=== PATIENT | female | born 1945 | race Caucasian/White ===

== ENCOUNTER 2022-05-23 09:37 | Day surgery (SDC) | payer MEDICARE, OTHER, SELFPAY ==
[2022-05-23] VITALS (32 sets, daily range): BP systolic 99–189; BP diastolic 56–107; PULSE 60–80; RESP 12–20; TEMP 35.8–36.8; O2SAT 92–99; BMI 33.8
[2022-05-23] MEDS: LACTATED RINGERS 1000 ML 1,000 ML 100 ML IV (11:00)
[2022-05-23] MEDS: SODIUM CHLORIDE 0.9 % (FLUSH) 10 ML SYRINGE IVF (11:00)
[2022-05-23] MEDS: CELECOXIB 200 MG CAPSULE PO (11:20)
[2022-05-23] MEDS: OXYCODONE (CR) 10 MG TAB.ER.12H PO (11:20)
[2022-05-23] MEDS: ACETAMINOPHEN 500 MG TABLET 1000 MG PO (11:20)
[2022-05-23] MEDS: fentaNYL 100 MCG/2 ML inj IVP (11:35)
[2022-05-23] MEDS: MIDAZOLAM HCL 1 MG/ML inj IVP (11:35)
--- NOTE | 2022-05-23 11:44 | SUR.PREOP ---
TIME?OUT:? PT/RN/MDA?VERIFICATION?OF?SURGICAL?SITE,?PROCEDURE,?AND?CONSENT OBTAINED?PRIOR?TO?INVASIVE?PROCEDURE.CORRECT SITE IDENTIFIED SITE MARKED. SPRACLAVICULAR BLOCK COMPLETED BY PABLO WHITEHEAD CRNA AND HORACIO PERSAUD CRNA
--- NOTE | 2022-05-23 11:52 | W.PM.NB ---
Nerve Block Nerve Block Time Seen by Provider: 11:42 Date Seen: 05/23/22 Type of block requested by surgeon for post-operative analgesia: supraclavicular Side: right Time out performed: Yes Verification of patient name: Yes Verification of date of : Yes Site marking: site marked Name of person performing procedure: Trey Rivera Continuous monitoring Was continuous monitoring of O2 sat, B/P, laboratory monitor, recorded every 15 minutes?: Yes Procedure Checklist: sterile prep, needles and gloves Ultrasound guided. Images saved: Yes Medications given in 5ml increments after negative aspiration: Ropivicaine %: 0.5 mL: 20 Needle gauge: 20 Decadron (mg): 10 Precedex (mcg): 25 Patient tolerated procedure well: Yes Block Charges Block Charge (with Pro Fee): Brachial Plexus Use of Ultrasound Machine for Block: Yes- US Guidance/pain block
--- NOTE | 2022-05-23 12:56 | CRLHL7_ITS ---
For Patients: As a result of the Cures Act, medical imaging exams and procedure reports are released immediately into your electronic medical record. You may view this report before your referring provider. If you have questions, please contact your health care provider. Indication: POST OP RIGHT SHOULDER Technique: Two views right shoulder Findings/Impression: Hardware from a right total shoulder arthroplasty is in satisfactory position. Bone alignment is normal. No sign of acute fracture. Postop changes are within normal limits. Dictated by Kendrick Brush MD @ 05/24/2022 8:58:18 AM (Electronically Signed)
[2022-05-23] MEDS: CEFAZOLIN 2 GM in 0.9 % SODIUM CHLORIDE Mini-bag 100 ML IVPB ×2 (13:00→17:19)
[2022-05-23] MEDS: TRANEXAMIC ACID 100 MG/ML INJ 1000 MG IV (13:00)
--- NOTE | 2022-05-23 15:09 | PM.ORPRC ---
Procedure Note Date of procedure: 05/23/22 Procedure: PREOPERATIVE DIAGNOSIS: 1. Right shoulder cuff tear arthropathy with full-thickness supra, infra, and subscap tears with moderate atrophy of all 3. 2. Right long head of the biceps tendinopathy and tenosynovitis POSTOPERATIVE DIAGNOSIS: 1. Right shoulder cuff tear arthropathy with full-thickness supra, infra, and subscap tears with moderate atrophy of all 3. 2. Right long head of the biceps tendinopathy and tenosynovitis PROCEDURE: 1. Right reverse shoulder arthroplasty. 2. Right long head of biceps open tenodesis SURGEON: Osmani Rodriguez MD. NAIL MAKING MACHINE SETTER: Chevy Patricio PA-C; Favio TAYLOR - Of note, a skilled video production assistant was critical for this case to aid in patient positioning, tissue retraction, limb manipulation/positioning, retraction for glenoid exposure, which was challenging, awareness and protection of critical structures, and closure. ANESTHESIA: General plus supraclavicular block IMPLANTS: DJ0 surgical Altivate humeral stem size 10 small shell, short with P2 porous coating vitamin E neutral poly small socket insert RSP glenoid base plate P2 porous coating with 4 perimeter locking screws 32 neutral glenosphere with retaining screw COMPLICATIONS: None evident INDICATIONS: The patient is a pleasant 76-year-old female who has experienced severe right shoulder pain and difficulty with use. Workup included imaging which revealed severe osteoarthrosis along with concern for rotator cuff quality. Physical exam was consistent with associated pain. Given the deformity, the dysfunction, and the pain, and failure of nonoperative management, recommendation was made for surgery. DESCRIPTION OF PROCEDURE: Following a thorough discussion of risks, benefits, and alternatives, consent was obtained and the right shoulder was marked. The patient was brought to the operating room and placed supine on the operating table. Induction of anesthesia was undertaken. 2 g IV Ancef and 1 g tranexamic acid was administered within 1 hr of incision preoperatively. Appropriate time-out was performed identifying proper patient, site, and procedure. The operative extremity was prepped and draped in the appropriate sterile fashion using ChloraPrep after the patient was positioned in the lazy beach chair position with head in neutral alignment and all bony prominences well padded. A longitudinal incision was made for deltopectoral approach. Deltoid was retracted laterally. Cephalic vein was retracted laterally as well. The clavipectoral fascia was identified and divided longitudinally staying lateral to the conjoined tendon / coracoid. The conjoined tendon was protected with a blunt Hohmann. The long head of the biceps tendon was identified and the bicipital sheath released. The upper 1/4 of the pectoralis major was also released from its insertion. The long head of the biceps was tenodesed to the pectoralis major tendon. The remaining proximal tendon tissue was excised. The rotator cuff was inspected and found to have good integrity with the subscapularis but fair integrity with a supraspinatus], and a decision for a reverse shoulder arthroplasty was confirmed. The long head of biceps, of note, was significant flattened, thickened, with abundant tenosynovitis. A subscapularis cuff of tissue was left via tenotomy for later repair with the remaining subscapularis released in a subperiosteal fashion with the Bovie. This was tagged for later repair. The 3 sisters were cauterized. The upper subscapularis was released from the capsule with a curved Martinez scissors towards the glenoid. The inferior subscapularis was divided from the capsular tissue on its caudal surface with particular caution for the axillary nerve. This was palpated anterior to the subscapularis both prior to and near the finish of the case. Inferior humeral head osteophytes were excised with caution taken throughout the case with regards to the axillary nerve. The humerus was dislocated, and humeral head cut completed. The Sizer was placed and the central drill hole created. Then a protector plate was applied. We turned our attention to the glenoid. The humerus was retracted posteriorly. The subscap was protected anteriorly and the labrum/long head biceps origin was excised circumferentially. The capsule was released along the anterior and inferior portions of the glenoid cautiously with a Curtis elevator being careful not to penetrate deep. The glenoid had appropriate exposure, and was prepared with the cannulated system with a target of approximately 5-10? of inferior tilt and neutral anteversion. After placing the guide pin, the tap was placed followed by the glenoid reaming with the 2 different sized Reamer. Following this, preparation was complete with this central drill, the real base plate was opened, and inserted, and excellent purchase was achieved with the central screw. Peripheral screws were then drilled, measured, and placed accordingly again achieving excellent purchase. The glenosphere was then placed consistent with the preoperative plan utilizing the above noted glenosphere. After securing the glenosphere with the locking torque limited screw, attention was turned back to the humerus. A canal finer was placed followed by various reamers. The real humeral stem was then opened and inserted with excellent metaphyseal fit and stability. Trial poly was placed and the shoulder reduced. Excellent reduction and stability achieved. At this stage, the trial implants were removed, and the real implants inserted. A 3 minute Betadine soak was performed followed by a thorough irrigation with normal saline. Subscapularis was repaired with # 1 PDS to the cuff of tissue on the lesser tuberosity. Excellent reapproximation of tissue achieved. A single far lateral rotator cuff interval suture was placed with # 0 Vicryl. Hemostasis was found to be appropriate. The deltopectoral interval was reapproximated with 0 Vicryl, subcutaneous and subcuticular closure was then performed with number 2-0 Vicryl and 4-0 Monocryl, respectively. A skilled video production assistant was critical for this case to aid in patient positioning, tissue retraction, limb manipulation/positioning, retraction for glenoid exposure, which was challenging, awareness and protection of critical structures, and closure. PLAN: 1. Sling at all times for the operative upper extremity. 2. AROM of elbow, forearm, wrist, and digits as tolerated. 3. PT/OT consults for education and assistance. 4. Social consult for discharge planning. 5. 23 hr perioperative antibiotics. 6. Early ambulation, and SCDs for DVT prophylaxis. 7. Admit to the hospital for the above 8. Analgesics p.r.n.
--- NOTE | 2022-05-23 15:54 | W.ANESCHARGE ---
Anesthesia Charges Start Date/Time Anesthesia Start Date: 05/23/22 Anesthesia Start Time: 12:49 Stop Date/Time Anesthesia Stop Date: 05/23/22 Anesthesia Stop Time: 15:40 Summary Emergency: No Extremes of Age: Over 70-CPT 74354
[2022-05-23] MEDS: fentaNYL 100 MCG/2 ML inj 50 MCG IVP (15:57)
--- NOTE | 2022-05-23 17:06 | SUR.PHASEI ---
patient met anesthesia criteria for discharge
[2022-05-23] MEDS: HYDROmorphone 0.5 mg/0.5 ml inj IVP (17:20)
--- NOTE | 2022-05-23 19:34 | PM.IMCN1 ---
Date of Consult Patient: Shona Patient Consult date: 05/23/22 Requesting Physician: Orthopedics Primary Care Provider: Alcides Garcia MD Consult Narrative Reason for consult: Postoperative management Narrative: HOSPITALIST CONSULT Hospital Day # 1 Post Op Day # 0 PROCEDURE: 1.? Right reverse shoulder arthroplasty. 2.? Right long head of biceps open tenodesis ANESTHESIA:? General plus supraclavicular block IMPLANTS:? DJ0 surgical COMPLICATIONS:? None evident The hospital medicine team was asked by Orthopedic surgery team to manage the patient's GERD, dyslipidemia. Patient is interviewed and examined the evening of her surgery. She is comfortably in her bedside chair. No apparent complications or concerns. I updated the [facility] histories and Medications and Allergies in the Expanse tabs REVIEW OF SYSTEMS: 12-point ROS completed with patient and negative unless otherwise stated in HPI or below. PHYSICAL EXAM: CODE STATUS: FULL CODE CONSTITUTIONAL: Conversive, good historian. A/O. Knows setting and context. VITAL SIGNS: see record. HEENT: Normocephalic, atraumatic. PERRL, EOMI, conjunctivae pink, no scleral icterus. Ears and nose externally normal. Pharynx normal. NECK: No JVD. No carotid bruit, no thyromegaly, no adenopathy. CHEST: Clear to auscultation bilaterally HEART: No harsh murmurs. S1/S2. ABDOMEN: Flat, soft, nontender. Normal bowel sounds. Moderately obese. EXTREMITIES: No edema. MUSCULOSKELETAL: Right shoulder surgical dressing in place. No obvious hematoma, neurovascular deficit or bleeding noted. NEURO: Cranial nerves intact. Normal affect. No gross deficits. Speech intelligible. SKIN: No rashes, petechiae, concerning changes PSYCHIATRIC: Euthymic. INVESTIGATIONS: EMR Reviewed DISPOSITION: MedSurg Recovery; Discharge tomorrow DVT: Not applicable GI: PO intake [facility] Medical History GERD (gastroesophageal reflux disease) Hyperlipidemia Surgical History (Updated 05/23/22 @ 23:02 by Niya Moses MD) History of appendectomy History of back surgery History of cataract extraction with lens replacement History of cholecystectomy History of vein stripping Status post reverse total shoulder replacement Family History Mother Myocardial infarction Father Lung cancer Social History Highest level of school completed/degree received: Bachelor's degree Smoking Status: Never smoker Do you use any of these nicotine containing products: None How often do you have a drink containing alcohol: 2-3 times a week How many standard drinks containing alcohol do you have on a typical day: 1 or 2 How often do you have six or more drinks on one occasion: Never AUDIT-C Alcohol total score: 3 Non-prescribed substance use: denies use Caffeine: Yes Are you now , , , , never or living with a partner: Social isolation score (0-1 are the most socially isolated patients): 1 service: No Meds Home Medications and Allergies Home Medications Medication Instructions Recorded Confirmed Type atorvastatin 20 mg tablet 20 mg PO HS 05/23/22 05/23/22 History Allergies Allergy/AdvReac Type Severity Reaction Status Date / Time nickel Allergy Intermediate Infection Verified 05/23/22 12:03 with earrings Exam Const: Vital Signs, click to edit/add: Vital Signs - 24 hr 05/23/22 10:44 05/23/22 11:35 05/23/22 11:40 Temperature 98 F Pulse Rate 62 62 60 Respiratory Rate 20 20 12 Blood Pressure 105/68 99/62 100/56 L Pulse Oximetry 99 98 97 Oxygen Delivery Me thod Room Air Nasal Cannula Nasal Cannula Oxygen Flow Rate 3 3 05/23/22 11:45 05/23/22 11:50 05/23/22 12:00 Temperature Pulse Rate 60 60 60 Respiratory Rate 14 14 14 Blood Pressure 106/59 L 100/59 L 102/57 L Pulse Oximetry 98 97 98 Oxygen Delivery Me thod Nasal Cannula Nasal Cannula Nasal Cannula Oxygen Flow Rate 3 3 3 05/23/22 15:38 05/23/22 15:45 05/23/22 15:40 Temperature 96.6 F L 96.6 F L 96.6 F L Pulse Rate 69 64 71 Respiratory Rate 15 12 15 Blood Pressure 130/67 147/84 H 141/68 H Pulse Oximetry 96 97 96 Oxygen Delivery Me thod Nasal Cannula Nasal Cannula Nasal Cannula Oxygen Flow Rate 6 6 6 05/23/22 15:50 05/23/22 15:55 05/23/22 16:00 Temperature 96.6 F L 96.6 F L 96.6 F L Pulse Rate 61 65 61 Respiratory Rate 18 16 16 Blood Pressure 157/81 H 169/97 H 170/78 H Pulse Oximetry 98 97 96 Oxygen Delivery Me thod Nasal Cannula Nasal Cannula Nasal Cannula Oxygen Flow Rate 6 6 3 05/23/22 16:05 05/23/22 16:10 05/23/22 16:15 Temperature 96.6 F L 96.6 F L 96.6 F L Pulse Rate 63 66 63 Respiratory Rate 14 16 15 Blood Pressure 164/92 H 172/98 H 186/74 H Pulse Oximetry 97 97 97 Oxygen Delivery Me thod Nasal Cannula Nasal Cannula Nasal Cannula Oxygen Flow Rate 3 3 2 05/23/22 16:20 05/23/22 16:25 05/23/22 16:30 Temperature 96.6 F L 96.6 F L 96.6 F L Pulse Rate 65 64 71 Respiratory Rate 12 15 14 Blood Pressure 189/93 H 170/93 H 171/105 H Pulse Oximetry 96 92 92 Oxygen Delivery Me thod Room Air Room Air Room Air Oxygen Flow Rate 0 0 0 05/23/22 16:35 05/23/22 16:40 05/23/22 16:45 Temperature 96.4 F L 96.8 F L 96.8 F L Pulse Rate 70 67 66 Respiratory Rate 12 15 17 Blood Pressure 178/102 H 184/88 H 187/107 H Pulse Oximetry 95 97 96 Oxygen Delivery Me thod Nasal Cannula Nasal Cannula Nasal Cannula Oxygen Flow Rate 2 2 2 05/23/22 16:50 Temperature 96.8 F L Pulse Rate 65 Respiratory Rate 16 Blood Pressure 184/90 H Pulse Oximetry 95 Oxygen Delivery Me thod Nasal Cannula Oxygen Flow Rate 2 Assessment and Plan Assessment and plan (1) Status post reverse total shoulder replacement: Problem comment: Dr. Paul Ashraf; 05/23/22 Status: Acute Assessment and Plan: Hospital medicine team is happy to follow this patient through to discharge. No VTE prophylaxis is needed. No perioperative concerns or questions. I expect a benign, routine postoperative course. I expect she will discharge in the morning. (2) GERD (gastroesophageal reflux disease): Problem comment: PPI prn, not scheduled Status: Acute Assessment and Plan: Pepcid or PPI as needed. (3) Hyperlipidemia: Problem comment: Lipitor 20mg hs Status: Acute Assessment and Plan: Continue her Lipitor, dosed in the morning (4) Obesity: Status: Acute
[2022-05-23] MEDS: SENNOSIDES 1 TAB TABLET 2 TAB PO (20:31)
[2022-05-23] MEDS: OXYCODONE 5 MG TABLET PO ×2 (20:31→23:48)
[2022-05-24] MEDS: CEFAZOLIN 2 GM in 0.9 % SODIUM CHLORIDE Mini-bag 100 ML IVPB ×2 (01:08→08:40)
[2022-05-24] MEDS: ACETAMINOPHEN 500 MG TABLET 1000 MG PO ×2 (01:14→08:38)
[2022-05-24] MEDS: OXYCODONE 5 MG TABLET PO ×3 (01:15→10:55)
[2022-05-24] MEDS: ONDANSETRON 2 MG/ML inj 4 MG IVP (01:19)
[2022-05-24] MEDS: MAG HYDROX/ALUMINUM HYD/SIMETH 30 ML ORAL.SUSP PO (01:23)
[2022-05-24 03:00] VITALS: BP 160/78; PULSE 81; RESP 16; TEMP 36.9; O2SAT 92
--- NOTE | 2022-05-24 07:09 | PC.NURSE ---
Shift Note 23-: Pt pleasant and cooperative, VSS with the exception of elevated BP, MD aware. Satisfactory urinary output, PIV SL. Pt up with A1 to assist with cryo-cuff. Pain controlled with scheduled Tylenol and Oxycodone PRN. see eMAR for medication administration.
[2022-05-24 07:28] LABS: Hematocrit 39.3 % (33.0-51.0); Hemoglobin* 12.7 gm/dL (12.0-16.0); Mean Corpuscular HGB Conc 32 gm/dL (32-36); Mean Corpuscular Hemoglobin 30 pg (26-34); Mean Corpuscular Volume 94 fL (80-100); Platelet Count* 183 K/uL (140-440); Red Blood Count 4.18 m/uL (4.00-5.20); White Blood Count* 9.97 K/uL (4.50-11.00)
[2022-05-24 07:31] LABS: Slide Review Reflex No
[2022-05-24 07:45] VITALS: BP 130/71; PULSE 74; TEMP 36.9; O2SAT 97
[2022-05-24 07:48] LABS: Potassium* 4.6 mmol/L (3.6-5.1); Sodium* 136 mmol/L (135-149)
[2022-05-24 08:01] LABS: Blood Urea Nitrogen* 13 mg/dL (7-30); Creatinine* 0.9 mg/dL (0.5-1.5); Est. Creatinine Clearance* 37.85; Estimated Glomerular Filt Rate 66 ml/min
--- NOTE | 2022-05-24 09:49 | PM.ORPN ---
Subjective Subjective Date Seen: 05/24/22 Principal diagnosis: Status postop day 1 right reverse total shoulder arthroplasty Interval history: Patient reports doing well. No acute events over night. Pain managed with scheduled /PRN medications and ice. Wearing bilateral knee high Fly stockings, and SCDs. Denies fevers, chills, aches, N/V, CP, SOB/KHAN, tachycardia, or lightheadedness. Ortho Exam Narrative Exam Narrative: Right shoulder: -Patient appears comfortable in recliner eating breakfast; no apparent acute distress -Alert and oriented times 3 -Operative shoulder swollen; soft, supple tissues; no obvious erythema. Ecchymosis minimal. Warmth appropriate -Surgical dressing clean, dry, intact; no obvious drainage, no erythematous streaking peripheral to the bandage -Bilateral calves soft and supple; no significant swelling, edema, tenderness, erythema, discoloration, warmth, or palpable cords -2+ radial pulse, intact dermatomes and myotomes distally (5/5 strength). Specifically axillary nerve intact Const Vital Signs, click to edit/add: Vital Signs - 24 hr 05/23/22 10:44 05/23/22 11:35 05/23/22 11:40 Temperature 98 F Pulse Rate 62 62 60 Pulse Rate [Left Apical] Respiratory Rate 20 20 12 Blood Pressure 105/68 99/62 100/56 L Blood Pressure [Left Arm] Pulse Oximetry 99 98 97 Oxygen Delivery Method Room Air Nasal Cannula Nasal Cannula Oxygen Flow Rate 3 3 05/23/22 11:45 05/23/22 11:50 05/23/22 12:00 Temperature Pulse Rate 60 60 60 Pulse Rate [Left Apical] Respiratory Rate 14 14 14 Blood Pressure 106/59 L 100/59 L 102/57 L Blood Pressure [Left Arm] Pulse Oximetry 98 97 98 Oxygen Delivery Method Nasal Cannula Nasal Cannula Nasal Cannula Oxygen Flow Rate 3 3 3 05/23/22 15:38 05/23/22 15:45 05/23/22 15:40 Temperature 96.6 F L 96.6 F L 96.6 F L Pulse Rate 69 64 71 Pulse Rate [Left Apical] Respiratory Rate 15 12 15 Blood Pressure 130/67 147/84 H 141/68 H Blood Pressure [Left Arm] Pulse Oximetry 96 97 96 Oxygen Delivery Method Nasal Cannula Nasal Cannula Nasal Cannula Oxygen Flow Rate 6 6 6 05/23/22 15:50 05/23/22 15:55 05/23/22 16:00 Temperature 96.6 F L 96.6 F L 96.6 F L Pulse Rate 61 65 61 Pulse Rate [Left Apical] Respiratory Rate 18 16 16 Blood Pressure 157/81 H 169/97 H 170/78 H Blood Pressure [Left Arm] Pulse Oximetry 98 97 96 Oxygen Delivery Method Nasal Cannula Nasal Cannula Nasal Cannula Oxygen Flow Rate 6 6 3 05/23/22 16:05 05/23/22 16:10 05/23/22 16:15 Temperature 96.6 F L 96.6 F L 96.6 F L Pulse Rate 63 66 63 Pulse Rate [Left Apical] Respiratory Rate 14 16 15 Blood Pressure 164/92 H 172/98 H 186/74 H Blood Pressure [Left Arm] Pulse Oximetry 97 97 97 Oxygen Delivery Method Nasal Cannula Nasal Cannula Nasal Cannula Oxygen Flow Rate 3 3 2 05/23/22 16:20 05/23/22 16:25 05/23/22 16:30 Temperature 96.6 F L 96.6 F L 96.6 F L Pulse Rate 65 64 71 Pulse Rate [Left Apical] Respiratory Rate 12 15 14 Blood Pressure 189/93 H 170/93 H 171/105 H Blood Pressure [Left Arm] Pulse Oximetry 96 92 92 Oxygen Delivery Method Room Air Room Air Room Air Oxygen Flow Rate 0 0 0 05/23/22 16:35 05/23/22 16:40 05/23/22 16:45 Temperature 96.4 F L 96.8 F L 96.8 F L Pulse Rate 70 67 66 Pulse Rate [Left Apical] Respiratory Rate 12 15 17 Blood Pressure 178/102 H 184/88 H 187/107 H Blood Pressure [Left Arm] Pulse Oximetry 95 97 96 Oxygen Delivery Method Nasal Cannula Nasal Cannula Nasal Cannula Oxygen Flow Rate 2 2 2 05/23/22 16:50 05/23/22 17:07 05/23/22 17:15 Temperature 96.8 F L 97.7 F 98 F Pulse Rate 65 67 Pulse Rate [Left Apical] 71 Respiratory Rate 16 16 16 Blood Pressure 184/90 H Blood Pressure [Left Arm] 175/86 H 170/86 H Pulse Oximetry 95 94 Oxygen Delivery Method Nasal Cannula Nasal Cannula Nasal Cannula Oxygen Flow Rate 2 1 1 05/23/22 17:30 05/23/22 17:45 05/23/22 18:00 Temperature 97.8 F 97.7 F Pulse Rate Pulse Rate [Left Apical] 70 77 Respiratory Rate 16 16 16 Blood Pressure Blood Pressure [Left Arm] 163/82 H 161/88 H 151/78 H Pulse Oximetry 96 95 95 Oxygen Delivery Method Nasal Cannula Nasal Cannula Room Air Oxygen Flow Rate 1 1 05/23/22 18:30 05/23/22 19:00 05/23/22 20:00 Temperature 98.2 F Pulse Rate Pulse Rate [Left Apical] 80 74 Respiratory Rate 16 16 16 Blood Pressure Blood Pressure [Left Arm] 146/77 H 124/103 H 130/94 H Pulse Oximetry 93 94 92 Oxygen Delivery Method Room Air Room Air Room Air Oxygen Flow Rate 05/23/22 21:00 05/23/22 22:00 05/24/22 03:00 Temperature 98.5 F Pulse Rate Pulse Rate [Left Apical] 78 79 81 Respiratory Rate 16 16 16 Blood Pressure Blood Pressure [Left Arm] 128/96 H 132/89 160/78 H Pulse Oximetry 93 92 92 Oxygen Delivery Method Room Air Room Air Room Air Oxygen Flow Rate 05/24/22 07:45 Temperature 98.4 F Pulse Rate Pulse Rate [Left Apical] 74 Respiratory Rate Blood Pressure Blood Pressure [Left Arm] 130/71 Pulse Oximetry 97 Oxygen Delivery Method Room Air Oxygen Flow Rate Assessment and Plan Assessment and plan (1) Status post reverse total shoulder replacement: Problem details: Dr. Osmani Rodriguez; 05/23/22 POD 1 right reverse total shoulder arthroplasty and long head biceps tenodesis Status: Acute (2) GERD (gastroesophageal reflux disease): Problem details: PPI prn, not scheduled Status: Acute (3) Hyperlipidemia: Problem details: Lipitor 20mg hs Status: Acute (4) Obesity: Status: Acute Plan - Complete 23 hour perioperative antibiotics. - PT/OT consult for education and assistance. - Social work consult for discharge planning - Prescribed analgesics as needed - Continue bilateral knee high Fly Hose stockings and SCDs - Anticipation is for discharge to home with family today 05/24/2022 if the patient remains medically stable, pain is controlled, and they are safe with mobilization.
--- NOTE | 2022-05-24 09:53 | P.DS_ITS ---
DS: Providers Provider Date Seen: 05/24/22 Date of admission: med/surg recovery 05/23/22 Primary care physician: Alcides Garcia MD Consults: 05/23/22 17:07 Consult to Occupational Therapy [CONS] Routine Comment: Reason(s) for OT Consult:: Evaluate and Treat Any Restrictions?:: See Comment Comment: ROM elbow, forearm, wrist, digits PRN Shoulder pendulums okay No active shoulder ROM Consult to Physical Therapy [CONS] Routine Comment: Reason(s) for PT Consult:: Evaluate and Treat Any Restrictions?:: No Restrictions Consult to Physician [CONS] Routine Comment: Consulting Provider: Hospitalists Has provider been notified: No Consult to Geriatric Nurse Practitioner [CONS] Routine Comment: Reason for Consult:: Discharge Planning Needs Attending Physician on discharge: Osmani Rodriguez MD Date of Discharge: 05/24/22 DS: Diagnosis Discharge Diagnosis (1) Status post reverse total shoulder replacement: Status: Acute Problem details: POD 1 right reverse total shoulder arthroplasty and long head biceps tenodesis DS: Summary Hospital Course Hospital Course: The patient has a history of right shoulder cuff tear arthropathy with full- thickness supra, infra, and subscap tears with moderate atrophy of all 3 tendons, and right long head of the biceps tendinopathy and tenosynovitis After appropriate preoperative evaluation, the patient underwent right reverse total shoulder arthroplasty and long head biceps tenodesis. Postoperatively, the patient was progressed to PT/OT and was felt ready for discharge. Status at Discharge Functional status at discharge: independent ambulation Overall status at discharge: patient is not back to baseline Time Spent with Patient Time attestation: Total time spent providing and/or coordinating discharge services: Time spent: Less than 30 minutes Exam Const: Vital Signs, click to edit/add: Vital Signs - 24 hr 05/23/22 10:44 05/23/22 11:35 05/23/22 11:40 Temperature 98 F Pulse Rate 62 62 60 Pulse Rate [Left A pical] Respiratory Rate 20 20 12 Blood Pressure 105/68 99/62 100/56 L Blood Pressure [Le ft Arm] Pulse Oximetry 99 98 97 Oxygen Delivery Me thod Room Air Nasal Cannula Nasal Cannula Oxygen Flow Rate 3 3 05/23/22 11:45 05/23/22 11:50 05/23/22 12:00 Temperature Pulse Rate 60 60 60 Pulse Rate [Left A pical] Respiratory Rate 14 14 14 Blood Pressure 106/59 L 100/59 L 102/57 L Blood Pressure [Le ft Arm] Pulse Oximetry 98 97 98 Oxygen Delivery Me thod Nasal Cannula Nasal Cannula Nasal Cannula Oxygen Flow Rate 3 3 3 05/23/22 15:38 05/23/22 15:45 05/23/22 15:40 Temperature 96.6 F L 96.6 F L 96.6 F L Pulse Rate 69 64 71 Pulse Rate [Left A pical] Respiratory Rate 15 12 15 Blood Pressure 130/67 147/84 H 141/68 H Blood Pressure [Le ft Arm] Pulse Oximetry 96 97 96 Oxygen Delivery Me thod Nasal Cannula Nasal Cannula Nasal Cannula Oxygen Flow Rate 6 6 6 05/23/22 15:50 05/23/22 15:55 05/23/22 16:00 Temperature 96.6 F L 96.6 F L 96.6 F L Pulse Rate 61 65 61 Pulse Rate [Left A pical] Respiratory Rate 18 16 16 Blood Pressure 157/81 H 169/97 H 170/78 H Blood Pressure [Le ft Arm] Pulse Oximetry 98 97 96 Oxygen Delivery Me thod Nasal Cannula Nasal Cannula Nasal Cannula Oxygen Flow Rate 6 6 3 05/23/22 16:05 05/23/22 16:10 05/23/22 16:15 Temperature 96.6 F L 96.6 F L 96.6 F L Pulse Rate 63 66 63 Pulse Rate [Left A pical] Respiratory Rate 14 16 15 Blood Pressure 164/92 H 172/98 H 186/74 H Blood Pressure [Le ft Arm] Pulse Oximetry 97 97 97 Oxygen Delivery Me thod Nasal Cannula Nasal Cannula Nasal Cannula Oxygen Flow Rate 3 3 2 05/23/22 16:20 05/23/22 16:25 05/23/22 16:30 Temperature 96.6 F L 96.6 F L 96.6 F L Pulse Rate 65 64 71 Pulse Rate [Left A pical] Respiratory Rate 12 15 14 Blood Pressure 189/93 H 170/93 H 171/105 H Blood Pressure [Le ft Arm] Pulse Oximetry 96 92 92 Oxygen Delivery Me thod Room Air Room Air Room Air Oxygen Flow Rate 0 0 0 05/23/22 16:35 05/23/22 16:40 05/23/22 16:45 Temperature 96.4 F L 96.8 F L 96.8 F L Pulse Rate 70 67 66 Pulse Rate [Left A pical] Respiratory Rate 12 15 17 Blood Pressure 178/102 H 184/88 H 187/107 H Blood Pressure [Le ft Arm] Pulse Oximetry 95 97 96 Oxygen Delivery Me thod Nasal Cannula Nasal Cannula Nasal Cannula Oxygen Flow Rate 2 2 2 05/23/22 16:50 05/23/22 17:07 05/23/22 17:15 Temperature 96.8 F L 97.7 F 98 F Pulse Rate 65 67 Pulse Rate [Left A pical] 71 Respiratory Rate 16 16 16 Blood Pressure 184/90 H Blood Pressure [Le ft Arm] 175/86 H 170/86 H Pulse Oximetry 95 94 Oxygen Delivery Me thod Nasal Cannula Nasal Cannula Nasal Cannula Oxygen Flow Rate 2 1 1 05/23/22 17:30 05/23/22 17:45 05/23/22 18:00 Temperature 97.8 F 97.7 F Pulse Rate Pulse Rate [Left A pical] 70 77 Respiratory Rate 16 16 16 Blood Pressure Blood Pressure [Le ft Arm] 163/82 H 161/88 H 151/78 H Pulse Oximetry 96 95 95 Oxygen Delivery Me thod Nasal Cannula Nasal Cannula Room Air Oxygen Flow Rate 1 1 05/23/22 18:30 05/23/22 19:00 05/23/22 20:00 Temperature 98.2 F Pulse Rate Pulse Rate [Left A pical] 80 74 Respiratory Rate 16 16 16 Blood Pressure Blood Pressure [Le ft Arm] 146/77 H 124/103 H 130/94 H Pulse Oximetry 93 94 92 Oxygen Delivery Me thod Room Air Room Air Room Air Oxygen Flow Rate 05/23/22 21:00 05/23/22 22:00 05/24/22 03:00 Temperature 98.5 F Pulse Rate Pulse Rate [Left A pical] 78 79 81 Respiratory Rate 16 16 16 Blood Pressure Blood Pressure [Le ft Arm] 128/96 H 132/89 160/78 H Pulse Oximetry 93 92 92 Oxygen Delivery Me thod Room Air Room Air Room Air Oxygen Flow Rate 05/24/22 07:45 Temperature 98.4 F Pulse Rate Pulse Rate [Left A pical] 74 Respiratory Rate Blood Pressure Blood Pressure [Le ft Arm] 130/71 Pulse Oximetry 97 Oxygen Delivery Me thod Room Air Oxygen Flow Rate DS: Data Data Completed and Pending Labs on day of discharge: Labs from last 24 hours 05/24/22 05/24/22 06:24 06:24 WBC 9.97 RBC 4.18 Hgb 12.7 Hct 39.3 MCV 94 MCH 30 MCHC 32 Plt Count 183 Sodium 136 Potassium 4.6 BUN 13 Creatinine 0.9 Estimated Creat Clear 37.85 Estimated GFR 66 Discharge Plan Discharge Disposition: Home, Self-Care Discharging Surgeon: Osmani Rodriguez Follow-Up Appointment: 1 week postop with PA Prescriptions: New sennosides-docusate sodium [Senna-S] 8.6-50 mg tablet 1 - 4 tab-cap PO BID PRN (Reason: constipation) Qty: 60 0RF Rx Instructions: Hold medication if experiencing loose stools. acetaminophen 500 mg capsule 500 - 1,000 mg PO Q6H MDD 4000mg PRNQty: 100 0RF oxycodone 5 mg tablet 2.5 - 5 mg PO Q4-6H MDD 6 PRN (Reason: pain) Qty: 42 0RF Rx Instructions: Take as needed for postop pain: 2.5mg mild pain, 5mg moderate-severe pain; wean as tolerated. Continued atorvastatin 20 mg tablet 20 mg PO HS Activity Level: No Restrictions, Activity as Tolerated and No Weight Bearing Activity Detail: No weight bearing right upper extremity Sling at all times unless performing elbow range of motion Wound: ?Do not remove original dressing; we will remove this at first postop visit in 1 week. Only remove dressing if integrity is in question. ?No immersing wound in water; showering okay; light scrub with your hand and body soap, rinse, dab dry ?Sutures are under the skin, will dissolve; allow surgical glue to come off naturally; do not scrub the wound or apply ointments/lotions ?Call our office with any redness that streaks, excessive drainage from the wound, or wound gapping. Ice/Elevate: ?Ice as needed for swelling and discomfort (cryocuff or ice pack); elevate frequently above the heart DANIELLA socks: ?Wear for 1 month, remove for 1 hour 3 times per day ?These are frustrating to take on/off, but are important for blood clot prevention for 1 month after surgery. Driving: ?Do not drive while taking narcotic pain medication Dental: ?No elective dental work for 6 months post-op. If there is an urgent/emergent dental need, contact our office for an antibiotic prescription. Smoking/Alcohol: ?Do not smoke; do no drink alcohol especially when taking postoperative oral narcotic medication Seek Care from you Primary Care Provider if you experience the following issues in the postoperative phase and beyond: ?Bacterial infections such as: pneumonia, bacterial skin infection (cellulitis), UTI, high fever, chills unrelated to the operative body part - call your primary care physician urgently for treatment in hopes to protect your health and the metal implant. Referrals: ?PT, OT per patient preference - evaluate and treat right reverse total shoulder arthroplasty protocol (ROM, ADLs, knee-high Daniella socks) Follow up: ?Ortho surgeon follow-up in 6 weeks; repeat radiographs three views right shoulder ?PA-C visit in 1 week *If there are any acute concerns regarding your surgery, please call our orthopedic clinic ([phone]) Discharge Diet: Regular Patient Instructions: Surgical Site Infections (DC) Forms: Work/Release Restrictions Follow-up: Chevy Patricio PA-C [Physician Care Transport Nurse] - 05/31/22 9:30 am Alcides Garcia MD [Primary Care Provider] - (Set up appointment as needed.) Discharge Orders: Discharge Order (Routine); Ordered 05/24/22 Ordered By: Sosa Rios
--- NOTE | 2022-05-24 10:25 | P.DS_ITS ---
DS: Providers Provider Date Seen: 05/24/22 Primary care physician: Alcides Garcia MD Admitting Clinician: Osmani Rodriguez MD Consults: Patient seen by therapies and hospitalist team during stay. Attending Physician on discharge: Osmani Rodriguez MD Date of Discharge: 05/24/22 DS: Diagnosis Discharge Diagnosis (1) Status post reverse total shoulder replacement: Status: Acute Problem details: POD 1 right reverse total shoulder arthroplasty and long head biceps tenodesis (2) Hyperlipidemia: Status: Acute Problem details: Lipitor 20mg hs (3) GERD (gastroesophageal reflux disease): Status: Acute Problem details: PPI prn, not scheduled DS: Summary Hospital Course Hospital Course: Veronica was admitted to the hospital for a RIGHT reverse total shoulder replacement. Hospitalist team was consulted to follow given comorbidities as noted above. Patient did well postoperatively. No changes were made to home medications upon discharge. Prophylaxis and pain management per Orthopedic surgery team. Patient will be discharged home with routine follow-up with therapies, orthopedic surgery, and PCP. Status at Discharge Functional status at discharge: independent ambulation Overall status at discharge: patient is progressing back to baseline Time Spent with Patient Time attestation: Total time spent providing and/or coordinating discharge services: Time spent: Less than 30 minutes Exam Narrative: Exam Narrative: Gen: A/O CV: RRR, no M/R/G R: Breathing comfortably, LCTA bilaterally Ext: Wearing brace on R shoulder, normal peripheral pulses Neuro: Nonfocal, ambulating with therapies well Const: Vital Signs, click to edit/add: Vital Signs - 24 hr 05/23/22 10:44 05/23/22 11:35 05/23/22 11:40 Temperature 98 F Pulse Rate 62 62 60 Pulse Rate [Left A pical] Respiratory Rate 20 20 12 Blood Pressure 105/68 99/62 100/56 L Blood Pressure [Le ft Arm] Pulse Oximetry 99 98 97 Oxygen Delivery Me thod Room Air Nasal Cannula Nasal Cannula Oxygen Flow Rate 3 3 05/23/22 11:45 05/23/22 11:50 05/23/22 12:00 Temperature Pulse Rate 60 60 60 Pulse Rate [Left A pical] Respiratory Rate 14 14 14 Blood Pressure 106/59 L 100/59 L 102/57 L Blood Pressure [Le ft Arm] Pulse Oximetry 98 97 98 Oxygen Delivery Me thod Nasal Cannula Nasal Cannula Nasal Cannula Oxygen Flow Rate 3 3 3 05/23/22 15:38 05/23/22 15:45 05/23/22 15:40 Temperature 96.6 F L 96.6 F L 96.6 F L Pulse Rate 69 64 71 Pulse Rate [Left A pical] Respiratory Rate 15 12 15 Blood Pressure 130/67 147/84 H 141/68 H Blood Pressure [Le ft Arm] Pulse Oximetry 96 97 96 Oxygen Delivery Me thod Nasal Cannula Nasal Cannula Nasal Cannula Oxygen Flow Rate 6 6 6 05/23/22 15:50 05/23/22 15:55 05/23/22 16:00 Temperature 96.6 F L 96.6 F L 96.6 F L Pulse Rate 61 65 61 Pulse Rate [Left A pical] Respiratory Rate 18 16 16 Blood Pressure 157/81 H 169/97 H 170/78 H Blood Pressure [Le ft Arm] Pulse Oximetry 98 97 96 Oxygen Delivery Me thod Nasal Cannula Nasal Cannula Nasal Cannula Oxygen Flow Rate 6 6 3 05/23/22 16:05 05/23/22 16:10 05/23/22 16:15 Temperature 96.6 F L 96.6 F L 96.6 F L Pulse Rate 63 66 63 Pulse Rate [Left A pical] Respiratory Rate 14 16 15 Blood Pressure 164/92 H 172/98 H 186/74 H Blood Pressure [Le ft Arm] Pulse Oximetry 97 97 97 Oxygen Delivery Me thod Nasal Cannula Nasal Cannula Nasal Cannula Oxygen Flow Rate 3 3 2 05/23/22 16:20 05/23/22 16:25 05/23/22 16:30 Temperature 96.6 F L 96.6 F L 96.6 F L Pulse Rate 65 64 71 Pulse Rate [Left A pical] Respiratory Rate 12 15 14 Blood Pressure 189/93 H 170/93 H 171/105 H Blood Pressure [Le ft Arm] Pulse Oximetry 96 92 92 Oxygen Delivery Me thod Room Air Room Air Room Air Oxygen Flow Rate 0 0 0 05/23/22 16:35 05/23/22 16:40 05/23/22 16:45 Temperature 96.4 F L 96.8 F L 96.8 F L Pulse Rate 70 67 66 Pulse Rate [Left A pical] Respiratory Rate 12 15 17 Blood Pressure 178/102 H 184/88 H 187/107 H Blood Pressure [Le ft Arm] Pulse Oximetry 95 97 96 Oxygen Delivery Me thod Nasal Cannula Nasal Cannula Nasal Cannula Oxygen Flow Rate 2 2 2 05/23/22 16:50 05/23/22 17:07 05/23/22 17:15 Temperature 96.8 F L 97.7 F 98 F Pulse Rate 65 67 Pulse Rate [Left A pical] 71 Respiratory Rate 16 16 16 Blood Pressure 184/90 H Blood Pressure [Le ft Arm] 175/86 H 170/86 H Pulse Oximetry 95 94 Oxygen Delivery Me thod Nasal Cannula Nasal Cannula Nasal Cannula Oxygen Flow Rate 2 1 1 05/23/22 17:30 05/23/22 17:45 05/23/22 18:00 Temperature 97.8 F 97.7 F Pulse Rate Pulse Rate [Left A pical] 70 77 Respiratory Rate 16 16 16 Blood Pressure Blood Pressure [Le ft Arm] 163/82 H 161/88 H 151/78 H Pulse Oximetry 96 95 95 Oxygen Delivery Me thod Nasal Cannula Nasal Cannula Room Air Oxygen Flow Rate 1 1 05/23/22 18:30 05/23/22 19:00 05/23/22 20:00 Temperature 98.2 F Pulse Rate Pulse Rate [Left A pical] 80 74 Respiratory Rate 16 16 16 Blood Pressure Blood Pressure [Le ft Arm] 146/77 H 124/103 H 130/94 H Pulse Oximetry 93 94 92 Oxygen Delivery Me thod Room Air Room Air Room Air Oxygen Flow Rate 05/23/22 21:00 05/23/22 22:00 05/24/22 03:00 Temperature 98.5 F Pulse Rate Pulse Rate [Left A pical] 78 79 81 Respiratory Rate 16 16 16 Blood Pressure Blood Pressure [Le ft Arm] 128/96 H 132/89 160/78 H Pulse Oximetry 93 92 92 Oxygen Delivery Me thod Room Air Room Air Room Air Oxygen Flow Rate 05/24/22 07:45 Temperature 98.4 F Pulse Rate Pulse Rate [Left A pical] 74 Respiratory Rate Blood Pressure Blood Pressure [Le ft Arm] 130/71 Pulse Oximetry 97 Oxygen Delivery Me thod Room Air Oxygen Flow Rate DS: Data Data Completed and Pending Labs on day of discharge: Labs from last 24 hours 05/24/22 05/24/22 06:24 06:24 WBC 9.97 RBC 4.18 Hgb 12.7 Hct 39.3 MCV 94 MCH 30 MCHC 32 Plt Count 183 Sodium 136 Potassium 4.6 BUN 13 Creatinine 0.9 Estimated Creat Clear 37.85 Estimated GFR 66 Discharge Plan Discharge Disposition: Home, Self-Care Discharging Surgeon: Osmani Rodriguez Follow-Up Appointment: 1 week postop with PA Prescriptions: New sennosides-docusate sodium [Senna-S] 8.6-50 mg tablet 1 - 4 tab-cap PO BID PRN (Reason: constipation) Qty: 60 0RF Rx Instructions: Hold medication if experiencing loose stools. acetaminophen 500 mg capsule 500 - 1,000 mg PO Q6H MDD 4000mg PRNQty: 100 0RF oxycodone 5 mg tablet 2.5 - 5 mg PO Q4-6H MDD 6 PRN (Reason: pain) Qty: 42 0RF Rx Instructions: Take as needed for postop pain: 2.5mg mild pain, 5mg moderate-severe pain; wean as tolerated. Continued atorvastatin 20 mg tablet 20 mg PO HS Activity Level: No Restrictions, Activity as Tolerated and No Weight Bearing Activity Detail: No weight bearing right upper extremity Sling at all times unless performing elbow range of motion Wound: ?Do not remove original dressing; we will remove this at first postop visit in 1 week. Only remove dressing if integrity is in question. ?No immersing wound in water; showering okay; light scrub with your hand and body soap, rinse, dab dry ?Sutures are under the skin, will dissolve; allow surgical glue to come off naturally; do not scrub the wound or apply ointments/lotions ?Call our office with any redness that streaks, excessive drainage from the wound, or wound gapping. Ice/Elevate: ?Ice as needed for swelling and discomfort (cryocuff or ice pack); elevate frequently above the heart DANIELLA socks: ?Wear for 1 month, remove for 1 hour 3 times per day ?These are frustrating to take on/off, but are important for blood clot prevention for 1 month after surgery. Driving: ?Do not drive while taking narcotic pain medication Dental: ?No elective dental work for 6 months post-op. If there is an urgent/emergent dental need, contact our office for an antibiotic prescription. Smoking/Alcohol: ?Do not smoke; do no drink alcohol especially when taking postoperative oral narcotic medication Seek Care from you Primary Care Provider if you experience the following issues in the postoperative phase and beyond: ?Bacterial infections such as: pneumonia, bacterial skin infection (cellulitis), UTI, high fever, chills unrelated to the operative body part - call your primary care physician urgently for treatment in hopes to protect your health and the metal implant. Referrals: ?PT, OT per patient preference - evaluate and treat right reverse total shoulder arthroplasty protocol (ROM, ADLs, knee-high Daniella socks) Follow up: ?Ortho surgeon follow-up in 6 weeks; repeat radiographs three views right shoulder ?YASMEEN visit in 1 week *If there are any acute concerns regarding your surgery, please call our orthopedic clinic ([phone]) Discharge Diet: Regular Patient Instructions: Surgical Site Infections (DC) Forms: Work/Release Restrictions Follow-up: Chevy Patricio PA-C [Physician Electro Mechanical Technician] - 05/31/22 9:30 am Alcides Garcia MD [Primary Care Provider] - (Set up appointment as needed.) Discharge Orders: Discharge Order (Routine); Ordered 05/24/22 Ordered By: Sosa Rios
[2022-05-24 10:44] VITALS: BP 184/90; PULSE 67; RESP 16; TEMP 36.9
[2022-05-24 11:00] VITALS: BP 137/85; PULSE 76; RESP 18; TEMP 37; O2SAT 96
--- NOTE | 2022-05-24 11:47 | PC.NURSE ---
Pt eval by PT, OT, Chevy orthopedic PA and myself. Sling to Right shoulder, dressing CDI, eupneic and in NAD. 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 Final dose of ATB given IV per protocol. Please see eMar for medications given on day shift. IV site discontinued. Pt & her spouse Rocael verbalized understanding of d/c diagnosis, home meds, pain management plan, wound care, f/up appt and symptoms to report urgently to physician. Discharged via w/c to own home with spouse Rocael as transportation @ 11:45 am.
== END 2022-05-24 11:45 | disposition home or self-care (01) ==
LOC: OR 10:06 → MEDSURG 10:10
PROVIDERS: PCP Family Medicine; Visit Provider Orthopaedic Surgery Sports Medicine
PROC: 0RRJ0JZ Replacement of Right Shoulder Joint with Synthetic Substitute, Open Approach (ICD-10-PCS; CPT 23472; principal; 2022-05-23 12:15)
DX: M75.121 Complete rotator cuff tear or rupture of right shoulder, not specified as traumatic (principal); M75.21 Bicipital tendinitis, right shoulder; K21.9 Gastro-esophageal reflux disease without esophagitis; E78.5 Hyperlipidemia, unspecified; E66.9 Obesity, unspecified; Z68.33 Body mass index [BMI] 33.0-33.9, adult
CPT/HCPCS: 23472; 23430; 1638; 36415; 64415; 73030; 76942; 82565; 84132; 84295; 84520; 85027; 97110; 97116; 97161; 97165; 99100; A9270; C1713; C1776; J0330; J0690; J1100; J1170; J2250; J2405; J2704; J2795; J3010; J7120; L3670

== ENCOUNTER 2022-10-11 08:36 | Day surgery (SDC) | payer MEDICARE, OTHER, SELFPAY ==
[2022-10-11 08:55] VITALS: BMI 35.0
[2022-10-11 09:01] VITALS: BP 117/63; PULSE 69; RESP 16; TEMP 36.2; O2SAT 96
[2022-10-11] MEDS: LACTATED RINGERS 1000 ML 1,000 ML 100 ML IV (09:05)
[2022-10-11] MEDS: SODIUM CHLORIDE 0.9 % (FLUSH) 10 ML SYRINGE IVF (09:05)
--- NOTE | 2022-10-11 09:12 | SUR.PREOP ---
HOME COVID NEGATIVE.
[2022-10-11] MEDS: LIDOCAINE 0.5%-EPI 1:200,000 50 ML VIAL 6 ML INJECTION (10:57)
--- NOTE | 2022-10-11 11:02 | SUR.OPER ---
PATIENT QUESTIONS ANSWERED SATISFACTORILY PREOPERATIVELY. PATIENT BROUGHT TO OR #4 PER CART. Patient positioned supine on OR #4 bed. Pt. legs moved into the lithotomy position for the procedure. Perioperative team supported arms bilaterally on arm boards. ? Final approval of positioning by surgeon.
[2022-10-11 11:25] VITALS: BP 107/81; PULSE 83; RESP 16; TEMP 36.3; O2SAT 99
--- NOTE | 2022-10-11 11:28 | W.ANESCHARGE ---
Anesthesia Charges Start Date/Time Anesthesia Start Date: 10/11/22 Anesthesia Start Time: 10:40 Stop Date/Time Anesthesia Stop Date: 10/11/22 Anesthesia Stop Time: 11:28 Summary Emergency: No Extremes of Age: Over 70-CPT [id number]
--- NOTE | 2022-10-11 11:31 | W.ANESCHARGE ---
Anesthesia Charges Start Date/Time Anesthesia Start Date: 10/11/22 Anesthesia Start Time: 10:40 Stop Date/Time Anesthesia Stop Date: 10/11/22 Anesthesia Stop Time: 11:28 Summary Emergency: No Extremes of Age: Over 70-CPT [id number]
--- NOTE | 2022-10-11 11:33 | W.PM.GYNPROC ---
Procedure Note Time Seen by Provider: 10:00 Date Seen: 10/11/22 Procedure Details: Preoperative diagnosis: 77 year-old with an incidental finding of 7mm thickened and irregular endometrial strip on CTAP. Cervical stenosis Postoperative diagnosis: Same Procedure: Dilation and curettage for endometrial sampling. Anesthesia: Conscious sedation with paracervical block. Surgeon: Hafsa Alanis MD Estimated blood loss: <5 mL Specimen: Endometrial curettings to pathology. Findings: Exam under anesthesia: Cervix is stenotic, although improved with misoprostol premedication. Uterus: anterior position, small, mobile, without nodularity/masses palpable. Adnexa were without fullness or nodularity. Procedure: Annie was taken to the operating where conscious sedation was found to be adequate. She was placed in the dorsal lithotomy position. An exam under anesthesia was performed with findings stated above. She was then prepped and draped in normal sterile manner. A bivalve metal speculum was placed in the vaginal canal. Vaginal canal appear normal. Cervix was stenotic, although improved from exam in clinic. A paracervical block was placed using 1% Lidocaine with epi: 5 mL injected at the 12, 4 and 8 o'clock positions on the cervix. The anterior lip of the cervix was then grasped with a tenaculum. The cervix was dilated progressively starting with pediatric dilators to accommodate an endometrial pipelle. The uterus sounded to 6 cm. Three passes with the endometrial pipelle was done. Then cervix was dilated to Hegar 4. Three passes with a sharp banjo curettage was performed. Overall, uterus felt gritty in its entirity with minimal tissues expressed despite multiple passes. Tenaculum and speculum were removed. Excellent hemostasis noted. Nothing was used for hemostasis. The patient tolerated the procedure well. Sponge, lap and instruments counts were correct at the end of the procedure. The patient was awakened from anesthesia and taken to the recovery area in stable condition.
[2022-10-11 11:39] VITALS: BP 124/83; PULSE 73; RESP 16; O2SAT 98
[2022-10-11 11:45] VITALS: BP 147/78; PULSE 70; RESP 16; O2SAT 98
[2022-10-11 12:00] VITALS: BP 163/83; PULSE 66; RESP 16; O2SAT 98
== END 2022-10-11 12:40 | disposition home or self-care (01) ==
PROVIDERS: PCP Family Medicine; Visit Provider Obstetrics & Gynecology
PROC: (CPT 58120; principal; 2022-10-11 09:45)
DX: R93.89 Abnormal findings on diagnostic imaging of other specified body structures (principal); N88.2 Stricture and stenosis of cervix uteri
CPT/HCPCS: 58120; 00940; 88305; 99100; J2250; J2405; J2704; J3010; J7120